=== PATIENT | male | born 1980 | race Hispanic/Latino ===

== ENCOUNTER 2019-03-02 04:28 | Inpatient (IN) | payer BC ==
[~2019-03-02] VITALS: Ht 177.8 cm; Wt 90.7 kg
[2019-03-02] VITALS (15 sets, daily range): BP systolic 109–156; BP diastolic 67–113
--- NOTE | 2019-03-02 04:34 | NUR ---
ARRIVAL PATIENT PRESENTS WITH COMPLAINTS OF RLQ ABDOMINAL PAIN THAT STARTED THURSDAY AT 193. PATIENT REPORTS N/V. PAIN 8/10, CRAMPING AT THIS TIME. DENIES DIARRHEA, URINARY SYMPTOMS. PATIENT CONNECTED TO MONITOR. VSS. XUAN MD NOTIFIED.
[2019-03-02] MEDS ORDERED: ZOFRAN IV STA (04:48)
[2019-03-02] MEDS ORDERED: NS 1000ML 1,000 ML ONE ×2 (04:49→05:41)
[2019-03-02] MEDS ORDERED: ZOFRAN ONE ×2 (04:49→06:53)
--- NOTE | 2019-03-02 04:49 | NUR ---
Radiology Mercedes from Radiology notified of CT order
[2019-03-02] MEDS ORDERED: MORPHINE SULFATE ONE (04:55)
[2019-03-02 04:56] LABS: BASOPHIL % 0.3 % (0.0-0.2); EOSINOPHIL # 0.1 10^3/uL (0.0-0.2); EOSINOPHIL % 1.1 % (0.0-5.0); HEMOGLOBIN 16.4 g/dL (13.9-16.3); LYMPHOCYTES # 1.2 10^3/uL (1.0-4.8); LYMPHOCYTES % 9.6 % (24.0-44.0); MEAN CELL HGB 31.4 pg (26-34); MEAN CELL HGB CONCENTRATION 35.8 g/dL (33-37); MEAN CORP VOLUME 87.6 fL (78-100); MEAN PLATELET VOLUME 12.6 fL (7.8-11.0); MONOCYTES # 0.9 10^3/uL (0.3-0.8); MONOCYTES % 7.3 % (5.0-12.0); NEUTROPHIL # 10.2 10^3/uL (1.8-7.7); NEUTROPHILS % 81.5 % (41.0-85.0); WHITE BLOOD CELL 12.5 10^3/uL (4.5-11.0)
[2019-03-02] MEDS ORDERED: NS 1000ML 1,000 ML IV ONE (05:00)
[2019-03-02] MEDS ORDERED: MORPHINE SULFATE IV ONE (05:00)
--- NOTE | 2019-03-02 05:00 | ER.PDOC ---
General Chief Complaint: Abdomen Pain Stated Complaint: ABD PAIN Time seen by MD: 04:50 Source: patient Exam Limitations: no limitations History of Present Illness Initial Comments abdominal pain rlq starting about 32 hours ago, rlq with vomiting, got better but never totally went away, then pain got worse, no history of abd surgeries, no diarrhea. Severity/Quality: moderate Radiation: RLQ Associated Symptoms: denies symptoms Allergies: Coded Allergies: No Known Drug Allergies (Verified Allergy, Unknown, 03/02/19) Vital Signs First Vital Signs Date Time Temp Pulse Resp B/P (MAP) Pulse Ox O2 Delivery O2 Flow Rate FiO2 03/02/19 04:34 98.4 95 18 99 Room Air 03/02/19 04:34 126/74 (91) Last Vital Signs Date Time Temp Pulse Resp B/P (MAP) Pulse Ox O2 Delivery O2 Flow Rate FiO2 03/02/19 05:44 90 131/77 (95) 95 03/02/19 04:34 98.4 18 Room Air Past Medical History Medical History: no pertinent history Social History Smoking: non-smoker Alcohol Use: occassionally Drug Use: none Constitutional: denies fever Respiratory: denies cough Cardiovascular: denies chest pain Gastrointestinal: abdominal pain, vomiting Genitourinary: denies flank pain Musculoskeletal: denies neck pain Skin: denies rash Psychiatric/Neurological: denies headache Physical Exam General Appearance: No Apparent Distress, WD/WN Neck: Non-Tender, Full Range of Motion Respiratory: chest non-tender, normal breath sounds Cardiovascular: Normal Peripheral Pulses, Regular Rate, Rhythm Gastrointestinal: Tenderness Back: Normal Inspection, No CVA Tenderness Extremities: Normal Range of Motion, Non-Tender Neurologic/Psychiatric: No Motor/Sensory Deficits, Alert Skin: Normal Color Comments rlq abd pain to palpation, pos guarding no rebound Results/Orders Results/Orders Orders - ASIA GOVEA MD Cbc With Auto Diff (03/02/19 04:48) Comprehensive Metabolic Panel (03/02/19 04:48) Amylase (03/02/19 04:48) Lipase (03/02/19 04:48) PT (03/02/19 04:48) Ct Abd/Pel With Iv Contrast (03/02/19 04:48) Partial Thromboplastin Time. (03/02/19 04:48) Urinalysis (03/02/19 04:48) Saline Lock (03/02/19 04:48) Morphine Sulfate (Morphine Sulfate) (03/02/19 05:00) Ondansetron Hcl (Zofran) (03/02/19 04:48) 0.9 % Sodium Chloride (Ns 1000ml) (03/02/19 05:00) Morphine Sulfate (Morphine Sulfate) (03/02/19 04:55) Hydromorphone Inj (Dilaudid) (03/02/19 05:30) Hydromorphone Inj (Dilaudid) (03/02/19 05:04) 0.9 % Sodium Chloride (Ns 1000ml) (03/02/19 05:41) 0.9 % Sodium Chloride (Ns 1000ml) (03/02/19 06:00) Physician Consult (03/02/19 05:44) Npo Now (03/02/19 05:44) Cefoxitin Sodium (Mefoxin) (03/02/19 05:57) Cefoxitin Sodium (Mefoxin) (03/02/19 06:16) Vital Signs Date Time Temp Pulse Resp B/P (MAP) Pulse Ox O2 Delivery O2 Flow Rate FiO2 03/02/19 05:44 90 131/77 (95) 95 03/02/19 04:53 88 150/84 (106) 96 03/02/19 04:34 98.4 95 18 126/74 (91) 99 Room Air 03/02/19 04:34 98.4 95 18 03/02/19 04:34 98.4 95 18 99 Room Air Administered Medications Medications (Trade) Dose Ordered Sig/Diana Route PRN Reason Start Time Stop Time Status Last Admin Dose Admin Hydromorphone HCl (Dilaudid) 1 mg STAT ONCE IV 03/02/19 05:30 03/02/19 05:31 DC 03/02/19 05:10 1 MG Morphine Sulfate (Morphine Sulfate) 4 mg STAT ONCE IV 03/02/19 05:00 03/02/19 05:01 DC 03/02/19 04:55 4 MG Ondansetron HCl (Zofran) 4 mg STAT STAT IV 03/02/19 04:48 03/02/19 04:50 DC 03/02/19 04:55 4 MG Sodium Chloride 1,000 ml @ 0 mls/hr Q0M ONCE IV 03/02/19 05:00 03/02/19 05:01 DC 03/02/19 04:55 1,000 MLS/HR Sodium Chloride 2,722 ml @ 1,361 mls/hr OT IV 03/02/19 06:00 04/01/19 05:59 UNV 03/02/19 05:50 1,361 MLS/HR Laboratory Tests Test 03/02/19 04:43 White Blood Count 12.5 10^3/uL (4.5-11.0) H Red Blood Count 5.23 10^6/uL (4.50-5.90) Hemoglobin 16.4 g/dL (13.9-16.3) H Hematocrit 45.8 % (37.0-53.0) Mean Corpuscular Volume 87.6 fL (78-100) Mean Corpuscular Hemoglobin 31.4 pg (26-34) Mean Corpuscular Hemoglobin Concent 35.8 g/dL (33-37) Red Cell Distribution Width 13.0 % (11.5-14.5) Platelet Count 122 10^3/uL (150-400) L Mean Platelet Volume 12.6 fL (7.8-11.0) H Neutrophils (%) (Auto) 81.5 % (41.0-85.0) Lymphocytes (%) (Auto) 9.6 % (24.0-44.0) L Monocytes (%) (Auto) 7.3 % (5.0-12.0) Neutrophils # (Auto) 10.2 10^3/uL (1.8-7.7) H Lymphocytes # (Auto) 1.2 10^3/uL (1.0-4.8) Monocytes # (Auto) 0.9 10^3/uL (0.3-0.8) H Absolute Immature Granulocyte (auto 0.02 10^3 u/L (0-2) Immature Granulocytes % 0.20 % (0.00-0.50) Eosinophils % 1.1 % (0.0-5.0) Basophils % 0.3 % (0.0-0.2) H Basophils # 0.0 10^3/uL (0.0-0.1) Eosinophil Count 0.1 10^3/uL (0.0-0.2) Prothrombin Time 11.5 SEC (9.8-11.9) Prothrombin Time INR (Non-Therap) 1.2 PTT 26.3 SEC (24.67-30.72) Sodium Level 137 mmol/L (132-145) Potassium Level 3.6 mmol/L (3.6-5.2) Chloride Level 100.0 mmol/L (96-109) Carbon Dioxide Level 22.3 mmol/L (20.0-32) Anion Gap 18.3 Blood Urea Nitrogen 15 mg/dL (7-18) Creatinine 1.20 mg/dL (0.59-1.40) Estimated GFR () 80.7 (>/=60) BUN/Creatinine Ratio 12.0 Glucose Level 136 mg/dL (70-110) H Calcium Level 9.0 mg/dL (8.4-10.5) Total Bilirubin 2.6 mg/dL (0.2-1.0) H Aspartate Amino Transferase (AST) 21 U/L (0-35) Alanine Aminotransferase (ALT) 38 U/L (12-78) Alkaline Phosphatase 59 U/L (50-136) Total Protein 7.4 g/dL (6.4-8.2) Albumin 4.0 g/dL (3.4-5.0) Globulin 3.4 Amylase Level 27 U/L (25-115) Lipase 51 U/L (114-286) L Consult/PCP Time Consult/PCP Called: 05:44 Consult/PCP: dr alegre Reason/Comments: acute appendicitis Course Sepsis Screening Results: Posi: POSITIVE SEPSIS RISK Vitals & review Data Vital Sign - Last 24 Hours 03/02/19 03/02/19 03/02/19 03/02/19 04:34 04:34 04:34 04:53 Temp 98.4 98.4 98.4 Pulse 95 95 95 88 Resp 18 18 18 B/P (MAP) 126/74 (91) 150/84 (106) Pulse Ox 99 99 96 O2 Delivery Room Air Room Air 03/02/19 05:44 Pulse 90 B/P (MAP) 131/77 (95) Pulse Ox 95 Laboratory Tests Test 03/02/19 04:43 White Blood Count 12.5 10^3/uL Red Blood Count 5.23 10^6/uL Hemoglobin 16.4 g/dL Hematocrit 45.8 % Mean Corpuscular Volume 87.6 fL Mean Corpuscular Hemoglobin 31.4 pg Mean Corpuscular Hemoglobin Concent 35.8 g/dL Red Cell Distribution Width 13.0 % Platelet Count 122 10^3/uL Mean Platelet Volume 12.6 fL Neutrophils (%) (Auto) 81.5 % Lymphocytes (%) (Auto) 9.6 % Monocytes (%) (Auto) 7.3 % Neutrophils # (Auto) 10.2 10^3/uL Lymphocytes # (Auto) 1.2 10^3/uL Monocytes # (Auto) 0.9 10^3/uL Absolute Immature Granulocyte (auto 0.02 10^3 u/L Immature Granulocytes % 0.20 % Eosinophils % 1.1 % Basophils % 0.3 % Basophils # 0.0 10^3/uL Eosinophil Count 0.1 10^3/uL Prothrombin Time 11.5 SEC Prothrombin Time INR (Non-Therap) 1.2 Activated Partial Thromboplast Time 26.3 SEC Sodium Level 137 mmol/L Potassium Level 3.6 mmol/L Chloride Level 100.0 mmol/L Carbon Dioxide Level 22.3 mmol/L Anion Gap 18.3 Blood Urea Nitrogen 15 mg/dL Creatinine 1.20 mg/dL Estimated GFR () 80.7 BUN/Creatinine Ratio 12.0 Glucose Level 136 mg/dL Calcium Level 9.0 mg/dL Total Bilirubin 2.6 mg/dL Aspartate Amino Transf (AST/SGOT) 21 U/L Alanine Aminotransferase (ALT/SGPT) 38 U/L Alkaline Phosphatase 59 U/L Total Protein 7.4 g/dL Albumin 4.0 g/dL Globulin 3.4 Amylase Level 27 U/L Lipase 51 U/L Current Medications Medications (Trade) Dose Ordered Sig/Diana PRN Reason Start Time Stop Time Status Last Admin Cefoxitin Sodium 1 gm/Sodium Chloride 100 ml @ 100 mls/hr STAT STAT 03/02/19 06:16 03/02/19 07:15 Sodium Chloride 2,722 ml @ 1,361 mls/hr OT 03/02/19 06:00 04/01/19 05:59 UNV 03/02/19 05:50 Sepsis Infection Criteria Pres: None O2 Sat by Pulse Oximetry: 99 Departure Time of Disposition: 05:49 Disposition: 09 ADMITTED INPATIENT Impression: Primary Impression: Acute appendicitis Condition: Stable Referrals: PCP,UNKNOWN (PCP) PRIMARY CARE PROVIDER Duration or Time Spent with Pa: 20 ASIA GOVEA MD Mar 02, 2019 05:00
[2019-03-02] MEDS ORDERED: DILAUDID ONE ×2 (05:04→06:54)
[2019-03-02 05:12] LABS: CARBON DIOXIDE 22.3 mmol/L (20.0-32)
[2019-03-02] MEDS ORDERED: DILAUDID IV ONE (05:30)
--- NOTE | 2019-03-02 05:39 | NUR ---
Omar Alvares on phone with Dr. Nelson
--- NOTE | 2019-03-02 05:46 | DIREP ---
PROCEDURE:CT ABD/PELVIS WITH CONTRAST TECHNIQUE:No oral contrast was given. Following the intravenous administration of contrast material, venous phase cuts were obtained through the abdomen and pelvis. The images were viewed at lung, liver, bone, and soft tissue settings. Sagittal and coronal reconstructions are provided. COMPARISON:None. INDICATIONS:RLQ abd pain FINDINGS: LOWER CHEST:The lung bases are clear. LIVER:Diffuse hepatic steatosis. No focal hepatic lesion. BILIARY:Normal. PANCREAS:Normal. SPLEEN:Normal. URINARY TRACT:2.5 cm simple cyst in the superior pole of the right kidney (image 30, series 2). Additional, too small to characterize, bilateral renal hypodensities also likely represent tiny cysts. Symmetric renal enhancement. No hydronephrosis. The bladder is decompressed, limiting evaluation. ADRENALS:Normal. AORTA/VASCULAR:Normal. Retro-aortic left renal vein is incidentally noted, which is a normal variant. RETROPERITONEUM:Normal. No enlarged lymph nodes. BOWEL/MESENTERY:The appendix is fluid-filled, dilated (1.4 cm diameter) and demonstrates a thickened enhancing wall with prominent surrounding inflammatory changes, consistent with acute appendicitis. Three tiny locules of extraluminal gas are seen adjacent to the appendix (image 58, series 2), suggesting contained microperforation. No periappendiceal abscess or fluid collection. No obstructive or inflammatory changes involving the remainder of the unopacified GI tract. ABDOMINAL WALL:Tiny, fat containing, umbilical hernia. PELVIS:Prostate is normal in size. Minimal prostatic calcification. No pelvic free fluid or adenopathy. BONES:No acute abnormality or suspicious osseous lesion. OTHER:Normal. CONCLUSION: 1. Findings consistent with acute appendicitis, as above. Three punctate locules of gas immediately adjacent to the appendix raise question for contained microperforation. No periappendiceal abscess or fluid collection. 2. Hepatic steatosis. No focal hepatic lesion. 3. Additional findings, as above. 4. This report were discussed by telephone at 5:38 am on March 02, [address] Francis Alvares. Dictated by: Davis Raymundo MD on 03/02/2019 at 05:36 AM
--- NOTE | 2019-03-02 05:49 | NUR ---
Omar Nelson at patients bedside
[2019-03-02] MEDS: NS IV SCH ×2 (05:50→10:49)
[2019-03-02] MEDS ORDERED: MEFOXIN IM STA (05:57)
[2019-03-02] MEDS ORDERED: MEFOXIN 1 GM in NS 100ML 100 ML IV STA (06:16)
[2019-03-02] MEDS: LOVENOX SQ SCH (06:30)
[2019-03-02] MEDS ORDERED: ISOTON GENTAMICIN 80 MG/50 ML 50 ML IV ONE ×2 (06:48→08:42)
[2019-03-02] MEDS ORDERED: SODIUM CHLORIDE IR ONE (06:48)
[2019-03-02] MEDS ORDERED: SODIUM CHLORIDE IRR BAG 2,000 ML ONE (06:48)
[2019-03-02] MEDS ORDERED: SENSORCAINE-MPF 0.25% VIAL ONE ×2 (06:48→07:17)
[2019-03-02] MEDS ORDERED: LIDOCAINE 2% VIAL ONE ×2 (06:53→07:17)
[2019-03-02] MEDS ORDERED: NEOSTIGMINE ONE (06:53)
[2019-03-02] MEDS ORDERED: DECADRON ONE (06:53)
[2019-03-02] MEDS ORDERED: TORADOL ONE (06:54)
[2019-03-02] MEDS ORDERED: ZEMURON IV ONE (06:54)
[2019-03-02] MEDS ORDERED: QUELICIN ONE (06:54)
[2019-03-02] MEDS ORDERED: SUBLIMAZE ONE (06:55)
[2019-03-02] MEDS ORDERED: DIPRIVAN IV ONE (06:55)
--- NOTE | 2019-03-02 06:55 | PCM.EKG ---
[facility] Test Date: 2019-03-02 Test Time: 06:45:09 Pat Name: RAFA ALEJANDRA Department: Room: 303 A Gender: M [employer] Teacher: OG : 1980 Requested By: FRANCIS ALVARES Order Number: [id number] Reading MD: Francis Alvares Measurements Intervals [place] Rate: 94 P: 67 FL: 144 QRS: 56 QRSD: 94 T: 44 QT: 318 QTc: 397 Interpretive Statements Normal sinus rhythm Normal ECG No previous ECG available for comparison Electronically Signed On 03-02-2019 7:00:25 CDT by Francis Alvares Please click the below link to view image of tracing.
--- NOTE | 2019-03-02 07:34 | CNH ---
DATE OF CONSULTATION: CHIEF COMPLAINT: Acute appendicitis. HISTORY OF PRESENT ILLNESS: This is a 39-year-old male who reports to me he had onset of pain essentially a day and a half ago. He had significant nausea and vomiting throughout the night on the day of onset. He reports the pain was initially generalized and the abdomen became more focal in the lower abdomen in the last 12 hours. Few hours ago, he presented to ER at [facility], had an elevated white count and a CT scan that shows acute appendicitis. At time of my assessment, the patient is alert and pleasant. He is very cooperative. He reports his pain is minimally improved with the IV medications he has received. PAST MEDICAL HISTORY: He denies. PAST SURGICAL HISTORY: Positive for left hand surgery. ALLERGIES: No known drug allergies. HOME MEDICATIONS: None. SOCIAL HISTORY: Negative for tobacco or illicit drug use. Positive for occasional alcohol consumption. He does report he had a flu shot in last year. OCCUPATIONAL HISTORY: Works in [employer], doing fiberoptic slicing. FAMILY HISTORY: Mother living, age 58, healthy. Father living, age 59 and healthy per his report. REVIEW OF SYSTEMS: SEASONAL ALLERGIES: He does not report any significant cough. ENDOCRINE: He has no known thyroid disease or diabetes. CARDIOVASCULAR: No chest pain or trouble breathing. PULMONARY: No dyspnea or cough. ABDOMEN: As per HPI. PHYSICAL EXAMINATION: GENERAL: He is alert, oriented and appropriate 39-year-old male in no acute distress at the time of my assessment. VITAL SIGNS: Stated height 5 feet 9 inches, stated weight 200 pounds, pulse approximately 94, blood pressure 137/70, temperature 98.4, respiratory rate 16. HEENT: Normocephalic, atraumatic. [place] mucous membranes. NECK: Supple and soft. Trachea is midline. No JVD or thyromegaly. HEART: Regular rate and rhythm. LUNGS: Clear anteriorly bilaterally. ABDOMEN: Bowel sounds are positive and soft. He has rebound in the right lower quadrant and some early rigidity. He does essentially have a negative Rovsing sign. VASCULAR: He has positive pulses. NEUROLOGIC: He has no acute findings. Cranial nerves 2-12 are grossly intact. INTEGUMENT: Warm and dry. LABORATORY STUDIES: Show white count 12.5, hemoglobin 16.4, platelet count 122. Chemistry shows BUN of 15, creatinine of 1.2. Total bilirubin was noted to be 1.6. Coagulation studies show PT of 11.5, PTT 26.3. CT scan shows changes consistent with acute appendicitis. SURGICAL ASSESSMENTS: 1. Acute appendicitis. 2. Clinical dehydration that appears significant. 3. Thrombocytopenia. Platelet count is 122, unclear etiology. PLAN: 1. The patient is seen and examined. Chart is reviewed. 2. I have discussed with the current hospitalist who is corrections officer admitting this patient postoperatively. However, by the time of surgery is completed, we will likely be the daytime hospitalist to have discussed the case with postoperatively. 3. The patient has had some fluid resuscitation. We will plan for laparoscopic appendectomy as soon as possible. Charles Nelson DO DR: BEN/mendy JOB# [id number] CC: Tyshawn Cui MD
[2019-03-02] MEDS ORDERED: EXPAREL 266 MG/20 ML VIAL IJ ONE (09:00)
--- NOTE | 2019-03-02 09:50 | NUR ---
DISCHARGE PLAN PATIENT WAS OFF UNIT FOR SURGERY.
[2019-03-02 09:54] LABS: BILIRUBIN,URINE NEGATIVE (NEGATIVE)
[2019-03-02] MEDS ORDERED: ZOSYN 3.375 GRAM VIAL IV ONE (09:55)
[2019-03-02] MEDS ORDERED: NS 100ML 100 ML IV ONE (09:55)
[2019-03-02 09:57] LABS: APPEARANCE,URINE CLEAR (CLEAR); UA COLOR AMBER (YELLOW)
[2019-03-02] MEDS ORDERED: MORPHINE SULFATE IV PRN ×2 (10:00)
[2019-03-02] MEDS: PROTONIX IV IV SCH (10:00)
[2019-03-02] MEDS ORDERED: NORCO 5MG PO PRN (10:00)
[2019-03-02] MEDS ORDERED: ZOFRAN IV PRN ×2 (10:00)
[2019-03-02] MEDS ORDERED: PHENERGAN 12.5 MG in NS 25ML 25 ML IV PRN (10:00)
[2019-03-02] MEDS ORDERED: GENASYME PO PRN (10:00)
[2019-03-02] MEDS ORDERED: DILAUDID IV PRN (10:00)
[2019-03-02] MEDS: ZOSYN 3.375 GRAM VIAL 3.375 GM in NS 100ML 100 ML IV SCH ×3 (10:03→21:49)
[2019-03-02] MEDS: LACTATED RINGERS 1,000 ML IV SCH ×3 (10:09→21:55)
--- NOTE | 2019-03-02 10:20 | NUR ---
ARRIVAL PATIENT ARRIVED ON MED-SURG UNIT AT THIS TIME TO ROOM #303. PATIENT WAS PLACED ON POST SURGICAL VITAL SIGNS. DENIES PAIN OR UNMET NEEDS. CALL LIGHT IN REACH, BED IS LOW AND LOCKED. WILL CONTINUE TO MONITOR.
[2019-03-02] MEDS ORDERED: NS 1000ML 2,000 ML ONE (10:23)
--- NOTE | 2019-03-02 10:56 | OPH ---
DATE OF SURGERY: PREOPERATIVE DIAGNOSIS: Acute appendicitis. POSTOPERATIVE DIAGNOSES: 1. Acute gangrenous appendicitis with generalized peritonitis. 2. Significant dehydration. 3. History of alcohol use. SURGEON: Charles Nelson DO HEARING STENOGRAPHER: OR staff. ANESTHESIA: General by Francis Hadley plus intraoperative block provided. PROCEDURES PERFORMED: Laparoscopic-assisted cholecystectomy with laparoscopic peritoneal lavage. SPECIMENS: Appendix to path. ESTIMATED BLOOD LOSS: 13 mL. COUNTS: At the completion of the case, the counts were correct per OR staff. DESCRIPTION OF PROCEDURE: The patient is a 39-year-old male, known from emergency evaluation today. Prior to procedure, informed consent was obtained from the patient. At the time of procedure, he was taken to the operative suite and placed in supine position. After time-out was completed, general anesthesia was obtained. His abdomen was clipped. An intraoperative QL block was provided bilaterally by Department of Anesthesia. Next, his abdomen was prepped and draped. Supraumbilical midline incision was created. A 5 mm trocar was introduced into abdomen with Endo camera visualization. Once in the abdomen, pneumoperitoneum was induced to level of 14 mmHg. With camera visualization, 5 mm trocar was placed inferiorly and superiorly on the left. Both trocars in place, there was noted to be diffuse inflammation and fibrinopurulent exudate in the mid abdomen as well as in the left lower quadrant and the right lower quadrant. Attention was directed towards the right lower quadrant. There was noted to be significant inflammation of the small bowel to the right lower quadrant, which was mobilized. Subsequently, the terminal ileum was identified and the avascular flap of crease was mobilized, was noted to have the mesoappendix adhered to it. The tip of the appendix ultimately proved to be relatively less involved. However, the body of the appendix was significantly distended. Mesoappendix was gently isolated by blunt dissection and divided using Harmonic scalpel. However, the mid to proximal aspect of the appendix appears to be significantly inflamed and necrotic. Once the mesoappendix was adequately mobilized up to the base of the appendix, two Endoloops were placed. PDS Endoloops were placed on the base of the appendix near the level of the cecum. The appendix was then divided using Harmonic scalpel as well as the tie strand on the Endoloops. The specimen was placed in EndoCatch bag as well as to be some inflamed adipose tissue that was occluded and they removed through the inferior trocar site. Due to significant amount of associated inflammation, gentamicin 80 mg was placed in the right lower quadrant, followed by 3 liters of irrigation and suctioned. Another liter of irrigation was placed in the abdomen and identified, suctioned off the right and left upper quadrant and the pelvis. Another 80 mg of gentamicin was placed through the superior trocar site in the mid abdomen. Any further irrigation was identified and suctioned. A drain was passed into the inferior trocar site, placed through the pelvis to the right lower quadrant, secured the point of exit with a nylon suture and closure was pursued. With camera visualization, the remaining trocar sites were inspected. The right upper quadrant was again inspected. There were no perihepatic fluid collection identified. There was noted to be some inflammation associated with the gallbladder and there was minimal fatty liver changes identified. The remaining trocars were removed after removal of pneumoperitoneum. Trocar sites were irrigated. Cloudy clear fluid was identified draining through the drain site and the skin incisions were closed with 4-0 Monocryl. The patient was cleaned. Dressings were applied. Drapes were removed. The patient tolerated these procedures well. There were no acute complications noted. Due to significance of peritonitis he will be placed on Zosyn. Charles Nelson DO DR: BEN/mendy JOB# [id number] CC: Tyshawn Cui MD [place]
--- NOTE | 2019-03-02 13:00 | NUR ---
AMBULATION ASSISTED PATIENT TO AMBULATE 400 FEET AT THIS TIME. PATIENT WAS STABLE ON HIS OWN, NEEDING NO ASSISTANCE.
--- NOTE | 2019-03-02 14:41 | NUR ---
PATIENT AMBULATING IN HALLWAY WITH HIS SPOUSE AT THIS TIME.
[2019-03-02 16:32] LABS: HEMOGLOBIN 13.7 g/dL (13.9-16.3); LYMPHOCYTES # 0.5 10^3/uL (1.0-4.8); MEAN CELL HGB 31.2 pg (26-34); MEAN CELL HGB CONCENTRATION 34.4 g/dL (33-37); MEAN CORP VOLUME 90.7 fL (78-100); MONOCYTES # 0.6 10^3/uL (0.3-0.8); MONOCYTES % 6.3 % (5.0-12.0); NEUTROPHIL # 8.2 10^3/uL (1.8-7.7); NEUTROPHILS % 88.6 % (41.0-85.0); RED CELL DISTRIBUTION WIDTH 13.3 % (11.5-14.5); WHITE BLOOD CELL 9.3 10^3/uL (4.5-11.0)
[2019-03-02 17:17] LABS: CALCIUM 7.7 mg/dL (8.4-10.5); CARBON DIOXIDE 23.8 mmol/L (20.0-32)
--- NOTE | 2019-03-02 19:00 | NUR ---
pt ambulated in the [place] with family member the length of the unit x1
[2019-03-02 19:39] LABS: BAND NEUTROPHILS 12 % (2-6); LYMPHOCYTE 3 % (25-36); MONOCYTE 1 % (3-9); SEGMENTED NEUTROPHILS 84 % (31-76)
[2019-03-03] MEDS: ZOSYN 3.375 GRAM VIAL 3.375 GM in NS 100ML 100 ML IV SCH ×2 (03:35→08:47)
[2019-03-03 04:03] VITALS: BP 115/74
[2019-03-03] MEDS: LACTATED RINGERS 1,000 ML IV SCH (04:52)
[2019-03-03] MEDS: LOVENOX SQ SCH (05:40)
--- NOTE | 2019-03-03 06:19 | PRM.PN ---
Progress Note Subjective Date: Mar 02, 2019 Time: 06:17 Physician Notes: s/p lap appendectomy. Feels OK. Pain is not too bad. Ambulating Objective Review IO, Exams,& Results Problems Acute/Active Problems: (1) Acute appendicitis Vital Signs Date Time Temp Pulse Resp B/P (MAP) Pulse Ox O2 Delivery O2 Flow Rate FiO2 03/03/19 04:03 98.4 82 18 115/74 (88) 97 Room Air 98.4 03/02/19 14:49 21 03/02/19 10:20 3 Intake and Output 03/03/19 07:00 Intake Total 7718 ml Output Total 630 ml Balance 7088 ml Intake Oral 118 ml Electrolyte Solution 2700 ml IV Total 200 ml Other 4700 ml Output Urine Total 500 ml Drainage Total 130 ml # Voids 5 Laboratory Tests Test 03/02/19 04:43 03/02/19 07:40 03/02/19 07:43 03/02/19 15:59 White Blood Count 12.5 10^3/uL 9.3 10^3/uL Red Blood Count 5.23 10^6/uL 4.39 10^6/uL Hemoglobin 16.4 g/dL 13.7 g/dL Hematocrit 45.8 % 39.8 % Mean Corpuscular Volume 87.6 fL 90.7 fL Mean Corpuscular Hemoglobin 31.4 pg 31.2 pg Mean Corpuscular Hemoglobin Concent 35.8 g/dL 34.4 g/dL Red Cell Distribution Width 13.0 % 13.3 % Platelet Count 122 10^3/uL 99 10^3/uL Mean Platelet Volume 12.6 fL 13.0 fL Neutrophils (%) (Auto) 81.5 % 88.6 % Lymphocytes (%) (Auto) 9.6 % 5.0 % Monocytes (%) (Auto) 7.3 % 6.3 % Neutrophils # (Auto) 10.2 10^3/uL 8.2 10^3/uL Lymphocytes # (Auto) 1.2 10^3/uL 0.5 10^3/uL Monocytes # (Auto) 0.9 10^3/uL 0.6 10^3/uL Absolute Immature Granulocyte (auto 0.02 10^3 u/L 0.01 10^3 u/L Immature Granulocytes % 0.20 % 0.10 % Eosinophils % 1.1 % 0.0 % Basophils % 0.3 % 0.0 % Basophils # 0.0 10^3/uL 0.0 10^3/uL Eosinophil Count 0.1 10^3/uL 0.0 10^3/uL Prothrombin Time 11.5 SEC Prothrombin Time INR (Non-Therap) 1.2 Activated Partial Thromboplast Time 26.3 SEC Sodium Level 137 mmol/L 140 mmol/L Potassium Level 3.6 mmol/L 4.2 mmol/L Chloride Level 100.0 mmol/L 105.0 mmol/L Carbon Dioxide Level 22.3 mmol/L 23.8 mmol/L Anion Gap 18.3 15.4 Blood Urea Nitrogen 15 mg/dL 11 mg/dL Creatinine 1.20 mg/dL 1.09 mg/dL Estimated GFR () 80.7 90.2 BUN/Creatinine Ratio 12.0 10.0 Glucose Level 136 mg/dL 135 mg/dL Calcium Level 9.0 mg/dL 7.7 mg/dL Total Bilirubin 2.6 mg/dL 1.8 mg/dL Aspartate Amino Transf (AST/SGOT) 21 U/L 13 U/L Alanine Aminotransferase (ALT/SGPT) 38 U/L 30 U/L Alkaline Phosphatase 59 U/L 41 U/L Total Protein 7.4 g/dL 5.9 g/dL Albumin 4.0 g/dL 3.0 g/dL Globulin 3.4 2.9 Amylase Level 27 U/L Lipase 51 U/L Urine Collection Type VOID Urine Color LANE Urine Appearance CLEAR Urine Bilirubin NEGATIVE MG/DL Urine Ketones 15 mg/dL Urine Specific [place] 1.010 Urine pH 5 Urine Protein 30 mg/dL Urine Urobilinogen 4.0 Urine Nitrate NEGATIVE Urine Leukocyte Esterase NEGATIVE Urine Blood 25 1+ Urine RBC 0-2 RBC/HPF Urine WBC NONE SEEN WBC/HPF Urine Squamous Epithelial Cells RARE #/HPF Urine Bacteria NONE SEEN Urine Glucose NORMAL Urine Opiates, Qualitative POSITIVE ng/mL Urine Methadone, Qualitative POSITIVE ng/mL Urine Amphetamine Qualitative NEGATIVE ng/mL Urine Barbiturates, Qualitative NEGATIVE ng/mL Urine Phencyclidine Screen NEGATIVE ng/mL Urine MDMA (Ecstasy), Qualitative NEGATIVE ng/mL Urine Benzodiazepines Screen NEGATIVE ng/mL Urine Cocaine Qualitative NEGATIVE ng/mL Ur Tetrahydrocannabinol (THC) Scrn NEGATIVE ng/mL Test 03/02/19 17:05 Differential Total Cells Counted 100 #CELLS Segmented Neutrophils 84 % Band Neutrophils 12 % Lymphocytes 3 % Monocytes 1 % Platelet Estimate ADEQUATE Platelet Morphology NORMAL Blood Morphology Comment NORMAL MORPHOLOGY Current Medications Medications (Trade) Dose Ordered Sig/Diana PRN Reason Start Time Stop Time Status Last Admin Acetaminophen/ Hydrocodone Bitart ([place] 5mg) 1 ea Q4H PRN PAIN1-5 03/02/19 10:00 04/01/19 09:59 Enoxaparin Sodium (Lovenox) 40 mg Q24HRS 03/02/19 06:30 04/01/19 06:29 03/03/19 05:40 Hydromorphone HCl (Dilaudid) 0.2 mg Q5MIN PRN PAIN 1 - 3 03/02/19 10:00 03/03/19 09:59 Morphine Sulfate (Morphine Sulfate) 1 mg Q4H PRN PAIN 4 - 6 03/02/19 10:00 04/01/19 09:59 Morphine Sulfate (Morphine Sulfate) 3 mg Q3H PRN PAIN 7 - 10 03/02/19 10:00 04/01/19 09:59 Ondansetron HCl (Zofran) 4 mg PRN PRN nv 03/02/19 10:00 03/07/19 09:59 Ondansetron HCl (Zofran) 4 mg Q6 PRN NAUSEA / VOMITING 03/02/19 10:00 04/01/19 09:59 Pantoprazole Sodium (Protonix Iv) 40 mg DAILY 03/02/19 10:00 04/01/19 09:59 Piperacillin Sod/ Tazobactam Sod 3.375 gm/Sodium Chloride 100 ml @ 100 mls/hr Q6H 03/02/19 10:00 04/01/19 09:59 03/03/19 03:35 Promethazine HCl 12.5 mg/Sodium Chloride 25.5 ml @ 75.743 mls/ hr Q6 PRN NAUSEA / VOMITING 03/02/19 10:00 04/01/19 09:59 Simethicone (Genasyme) 80 mg Q4 PRN GAS/BLOATING 03/02/19 10:00 04/01/19 09:59 Sodium Chloride 2,722 ml @ 1,361 mls/hr OT 03/02/19 06:00 04/01/19 05:59 03/02/19 05:50 Heart: Regular rate Abdomen: Soft Lungs: Normal air movement Skin: No rashes Assessment & Plan: Assessment Continue IV antibiotics Plan Continue IV antibiotics NICO RODRIGUEZ MD Mar 03, 2019 06:19
--- NOTE | 2019-03-03 06:34 | NUR ---
REPORT TO FENG MUIR
--- NOTE | 2019-03-03 06:34 | NUR ---
REPORT REPORT RECEIVED FROM VALENT[facility] EDGE ASSUMED CARE OF PT
--- NOTE | 2019-03-03 06:56 | NUR ---
CULLEN pulled as instructed by Dr. Nevarez tip intact patient tolerated well.
[2019-03-03 07:09] LABS: HEMOGLOBIN 12.2 g/dL (13.9-16.3); MEAN CELL HGB 31.2 pg (26-34); MEAN CELL HGB CONCENTRATION 34.4 g/dL (33-37); MEAN CORP VOLUME 90.8 fL (78-100); MEAN PLATELET VOLUME 12.2 fL (7.8-11.0); RED CELL DISTRIBUTION WIDTH 13.2 % (11.5-14.5); WHITE BLOOD CELL 8.5 10^3/uL (4.5-11.0)
[2019-03-03 07:25] LABS: CALCIUM 7.6 mg/dL (8.4-10.5); CARBON DIOXIDE 23.3 mmol/L (20.0-32)
[2019-03-03 07:37] VITALS: BP 122/74
[2019-03-03] MEDS: PROTONIX IV IV SCH (08:47)
--- NOTE | 2019-03-03 09:37 | NUR ---
DISCHARGE PLAN CASE MANAGEMENT VISITED WITH PATIENT CONCERNING DISCHARGE PLAN AND NEEDS. LIVES AT HOME WITH , CHILD, AND GRANDCHILD IN [place]. INDEPENDENT OF ADLS. IS IN [employer] WORKING ON "[employer]" WITH HIS [employer] THAT TRA[employer]ELS. DENIES NEED FOR DME OR HOME OXYGEN. CM EDUCATED PATIENT ON OUTPATIENT SERVICES. DENIES NEED FOR SERVICES AT THIS TIME. PCP-DR. RICHARDS IN [place]. HAS FINANCIAL ABILITY TO PAY FOR MEDICATIONS UPON DISCHARGE IF NEEDED. DISCHARGE PLAN IS TO DISCHARGE HOME WITH FAMILY AND CONTINUE SELF CARE. CM WILL CONTINUE TO FOLLOW FOR DISCHARGE NEEDS.
[2019-03-03] MEDS ORDERED: ACET-687 PO (10:00)
--- NOTE | 2019-03-03 10:35 | HPH ---
ADMIT DATE: 03/02/2019 CHIEF COMPLAINT: Abdominal pain. HISTORY OF PRESENT ILLNESS: This is a 39-year-old male with no significant past medical history who is from [place] but was working in [place], [place], and over the last two days has noticed a generalized abdominal pain. He states that the pain started slowly throughout the entire abdomen and it felt like a sharp and crampy pain. There was no precipitating factor or event. The pain slowly progressed over the course of the next day and began to localize in the right lower quadrant. Pain became intermittent, but would never go fully away. Approximately 24 hours ago, he began having nausea, vomiting, and one episode of diarrhea. At that time, the pain began to get slightly worse, and he proceeded to the Emergency Department. PAST MEDICAL HISTORY: None. PAST SURGICAL HISTORY: Hand surgery. MEDICATIONS: None. ALLERGIES: No known drug allergies. PAST SURGICAL HISTORY: Hand surgery. SOCIAL HISTORY: Alcohol -- social. Tobacco -- none. Recreational drugs -- none. The patient works in the [employer] and lives in [place]. FAMILY HISTORY: No significant family history documented. REVIEW OF SYSTEMS: GENERAL: No recent weakness, fatigue, malaise, or fever. CARDIAC: Denies chest pain, orthopnea, PND or palpitations. RESPIRATORY: Denies shortness of breath, cough, or congestion. GASTROINTESTINAL: Positive for nausea, vomiting, and abdominal pain as above. GENITOURINARY: Denies dysuria, frequency, hematuria, and nocturia. HEMATOLOGIC: No easy bleeding or bruising. ENDOCRINE: No recent weight loss or weight gain. No temperature intolerance. NEUROLOGIC: Denies headache, paresthesias or dizziness. MUSCULOSKELETAL: No complains of weakness. DERMATOLOGIC: No complaints of rashes or skin lesions. PSYCHIATRIC: Denies depression or anxiety symptoms. OBJECTIVE: VITAL SIGNS: Temperature is 98.4, pulse 95, respirations 18, blood pressure 126/74, and pulse ox 99% on room air. GENERAL: This is a well-appearing male in no acute distress. HEENT: Atraumatic, normocephalic. NECK: Soft, supple, normal range of motion. No bruits, goiter, mass or adenopathy. LUNGS: Clear to auscultation bilaterally. HEART: Regular rate and rhythm without murmurs, S3 or S4. ABDOMEN: Soft, mild diffuse tenderness. Hypoactive bowel sounds. EXTREMITIES: Warm and well perfused without evidence of edema, cyanosis or clubbing. NEUROLOGIC: Cranial nerves 2-12 are grossly intact and symmetric. SKIN: Intact. LABORATORY DATA: WBC 12.5, hemoglobin 16.4, hematocrit 45.8, platelets 122. Sodium 137, potassium 3.6, BUN 15, creatinine 1.20, and glucose 136. Total bilirubin 2.6, remainder of LFTs -- negative. Lipase 51. Coagulation studies -- normal. Urinalysis -- no bacteria. CT abdomen and pelvis -- findings consistent with acute appendicitis. Possible contained microperforation. No periappendiceal abscess or fluid collection. Positive hepatic steatosis. ASSESSMENT: 1. Acute appendicitis with possible microperforation. 2. Generalized abdominal pain. 3. Nausea, vomiting. 4. Dehydration. 5. Hyperbilirubinemia. 6. Leukocytosis. PLAN: 1. The patient is admitted to [facility] for further evaluation and management. 2. The patient given empiric antibiotics and was taken to the operating room after consultation by Dr. Charles Nelson. Likely to undergo laparoscopic assisted appendectomy. 3. Continue IV fluids for aggressive hydration. 4. Pain and emesis control. 5. We will likely have drain upon return to the floor. 6. Stress ulcer and DVT prophylaxis. Tyshawn Cui MD DR: LUIS ALBERTO/mendy JOB# [id number]
--- NOTE | 2019-03-03 10:48 | DSH ---
DATE OF DISCHARGE: 03/03/2019 ADMITTING DIAGNOSES: 1. Acute appendicitis. 2. Abdominal pain. 3. Nausea and vomiting. 4. Leukocytosis. DISCHARGE DIAGNOSES: 1. Acute appendicitis. 2. Abdominal pain. 3. Nausea and vomiting. 4. Leukocytosis. DISCHARGE MEDICATIONS: Tylenol No. 3 one p.o. q. 4 hours p.r.n. DISCHARGE DISPOSITION: Home. FOLLOWUP: Follow up with PCP in 2 weeks. CONSULTANTS: Dr. Charles Nelson and Dr. Thanh Nevarez. PROCEDURES: Laparoscopic-assisted cholecystectomy with laparoscopic peritoneal lavage. HOSPITAL COURSE: This is a 39-year-old male that was admitted to [facility] on 03/02/2019 with abdominal pain and symptoms and signs consistent with acute appendicitis. Vital signs were stable and did not show evidence of sepsis. Laboratory evaluation showed a mild leukocytosis of 12.5, which normalized. Remainder of labs were stable. The patient was taken to the operating room on 03/02/2019 for laparoscopic appendectomy. The patient did well throughout procedure and his postoperative period. The patient was seen by Dr. Nevarez today and CULLEN drain was able to be removed. The patient is tolerating solids and passing gas. During my visit with the patient today, 03/03/2019, he is doing well without complaints. Abdominal pain is mild and he is tolerating p.o. without symptoms. He is passing gas. He is ambulating well. His vital signs were reviewed and are stable. His physical examination is stable with clear lungs; heart is regular rate and rhythm; abdomen is soft, nontender, and nondistended. He has positive bowel sounds. His extremities are without edema and his neurologic exam was within normal limits. Laboratory evaluation is stable today with a normal white blood cell count. CBC shows a mild decrease in potassium at 3.3. The patient feels good and is comfortable with going home. He is discharged to home in stable condition with instructions to follow up with his PCP in 10 days. Tyshawn Cui MD DR: LUIS ALBERTO/mendy JOB# [id number]
[2019-03-03 10:56] VITALS: BP 133/77
[2019-03-03 12:35] VITALS: BP 133/77
--- NOTE | 2019-03-03 12:35 | NUR ---
D/C D/C INSTRUCTIONS GIVEN TO PT ON PHYSICAL RESTRICTIONS, LEAVING STERI STRIPS ON UNTIL THEY FALL OF, AND FOLLOWING UP WITH APPT WITH DR LEES ON March. VERBALIZED AND WRITTEN UNDERSTANDING OBTAINED FROM PT. NO S/S OF DISTRESS NOTED. IV D/C'D PER ASEPTIC TECHNIQUE. NO S/S OF INFECTION NOTED TO SITE OR TROCHAR SITES. PT OFF OF FLOOR VIA W/C TO GO HOME IN PRIVATE VEHICLE WITH . RELINQUISHED CARE OF PT. Addendum: 03/03/19 at 1637 by Priscilla Thurman RN - RN D/C INSTRUCTIONS GIVEN TO PT ON PHYSICAL RESTRICTIONS OF NOT LIFTING NO MORE THAN 5LBS UNTIL CLEARED BY , LEAVING STERI STRIPS ON UNTIL THEY FALL OFF, WOUND CARE OF D/C'D CULLEN DRAIN SITE, FOLLOW UP APPT WITH DR LEES ON March, AND RETURNING TO ER IF PATIENT SHOULD RUN A TEMP OF GREATER THAN 100.4 VERBALIZED AND WRITTEN UNDERSTANDING RECEIVED. NO S/S OF DISTRESS NOTED. IV D/C'D PER ASEPTIC TECHNIQUE, NO S/S OF INFECTION NOTED TO SITE OR TROCHAR SITES. PT OFF OF FLOOR VIA W/C TO GO HOME IN PRIVATE VEHICLE WITH . RELINQUISHED CARE OF PT.
[2019-03-05 19:09] LABS: OPIATES Positive (.)
[2019-03-07 08:39] LABS: CODEINE NEGATIVE; MORPHINE GC/MS CONF >2000
== END 2019-03-03 12:54 | disposition home or self-care (01) | DRG 343 ==
LOC: ER 04:28 → MS 06:25 → EDPENDDISTM 03-03 12:35
PROVIDERS: ADMIT Family Medicine; ATTEND Family Medicine
PROC: 3E1M38Z Irrigation of Peritoneal Cavity using Irrigating Substance, Percutaneous Approach (ICD-10-PCS; 2019-03-02)
PROC: 0DTJ4ZZ Resection of Appendix, Percutaneous Endoscopic Approach (ICD-10-PCS; principal; 2019-03-02 07:04)
DX: K35.20 Acute appendicitis with generalized peritonitis, without abscess (principal); E86.0 Dehydration; E80.6 Other disorders of bilirubin metabolism
CPT/HCPCS: 36415; 74177; 80053; 80307; 80358; 81000; 82150; 83690; 85025; 85027; 85610; 85730; 93005; 99285; A4217; A4338; C9113; G0378; J0330; J1100; J1170; J1650; J1885; J2001; J2270; J2405; J2543; J2710; J3010; J3490; J7030; J7050; J7120; Q9967; 88302; A9270; C9290; J0694